=== PATIENT | male | born 1990 | race American Indian/Alaskan Native ===

== ENCOUNTER 2017-01-11 12:49 | Emergency (ER) | payer OTHER ==
[2017-01-11 13:48] VITALS: BP 121/81
--- NOTE | 2017-01-11 13:53 | Emergency Department Report ---
Entered by ASH GUALLPA, acting as scribe for SYMONE NOEL NP. Chief Complaint: Back Pain/Injury Stated Complaint: BACK PAIN Time Seen by Provider: 01/11/17 13:43 - HPI History of Present Illness: 26 y/o male presents c/o back pain that started yesterday morning. Pt denies penile discharge, dysuria, lesions or trauma to the area. Secondary complaints includes rash near his rectum. He notes being sexually active, but "calming down " with the number of partners. NAD VSS ambulatory no focal or neuro deficits concern for herpes flare - ROS Review of Systems: as noted in HPI - Exam Vital Signs: Vital Signs 01/11/17 13:42 Temperature 98.7 F Pulse Rate 81 Respiratory 16 Rate Blood Pressure 121/81 O2 Sat by Pulse 100 Oximetry Physical Exam: as noted in HPI MSE screening note: Focused history and physical exam performed. Due to findings the following was ordered: ED Disposition for MSE Condition: Stable This documentation as recorded by the scribe,ASH GUALLPA,accurately reflects the service I personally performed and the decisions made by ,SYMONE NOEL NP.
[2017-01-11 14:42] LABS: Bilirubin,Urine NEG (Negative); Blood,Urine NEG (Negative); Ketones,Urine NEG (Negative); Leukocyte Esterase,Urine NEG (Negative); Mucus,Urine FEW /HPF; Nitrite,Urine NEG (Negative); Protein,Urine <15 mg/dL mg/dL (Negative); Urobilinogen,Urine < 2.0 mg/dL (<2.0)
[2017-01-11] MEDS ORDERED: TORADOL IM ONE (16:56)
[2017-01-11] MEDS ORDERED: DELTASONE PO ONE (16:56)
--- NOTE | 2017-01-11 16:57 | Emergency Department Report ---
ED Back Pain/Injury HPI - General Chief Complaint: Pain General Stated Complaint: BACK PAIN Time Seen by Provider: 01/11/17 16:50 Source: patient Limitations: No Limitations - History of Present Illness Initial Comments: here reports that he has lower back pain 2 days that got worse last night. He denies any trauma or injury. He's had similar incident in the past but not had any x-ray. He denies any penile drainage or burning. Denies any blood in his urine. Denies any urinary burning frequency or urgency .denies any abdominal pain. Also added that he is concerned that he has herpes breakout in his rectal area which hurts. Pain to back and rectal areas 4-10. He says that there breakout has been there for 3 months and not getting any better. Denies any fever or chills. Denies constipation. MD Complaint: back pain, other (rectal pain) Onset/Timin -: days(s) (pain, back. Rectal pain for 3 months) Similar Symptoms Previously: Yes Place: home Radiation: none Severity: mild Severity scale (0 -10): 4 Quality: burning, aching Consistency: intermittent Improves With: immobilization Worsens With: movement, walking Context: unknown Associated Symptoms: denies: confusion, weakness, chest pain, numbness, difficulty walking, cough, difficulty urinating, diaphoresis, incontinence, fever/chills, constipation, headaches, abdominal pain, loss of appetite, malaise , nausea/vomiting, rash, seizure, shortness of breath, syncope Treatments Prior to Arrival: NSAIDS - Related Data Previous Rx's Medication Instructions Recorded Last Taken Type Hydrocortisone [Proctosol-Hc] 28.35 gm RC BID PRN #1 cream.appl 01/11/17 Unknown Rx traMADol [Ultram] 50 mg PO Q6HR PRN #20 tablet 01/11/17 Unknown Rx Allergies Allergy/AdvReac Type Severity Reaction Status Date / Time No Known Allergies Allergy Unverified 01/11/17 16:55 ED Review of Systems ROS: Stated complaint: BACK PAIN Other details as noted in HPI Comment: All other systems reviewed and negative Constitutional: denies: chills, fever ENT: denies: throat pain, congestion Respiratory: no symptoms reported. denies: cough, shortness of breath, SOB with exertion, SOB at rest, stridor, wheezing Cardiovascular: denies: chest pain, palpitations, edema, syncope Genitourinary: other (rectal pain). denies: urgency, dysuria, frequency, hematuria, discharge, testicular pain, testicular mass Musculoskeletal: back pain. denies: joint swelling, arthralgia, myalgia Skin: lesions (rectal area) Neurological: denies: headache, weakness, numbness, paresthesias, confusion, abnormal gait, vertigo ED Past Medical Hx - Past Medical History Previous Medical History?: Yes Additional medical history: Herpes - Surgical History Past Surgical History?: No - Family History Family history: no significant - Social History Smoking Status: Never Smoker Substance Use Type: Marijuana - Medications Home Medications: Home Medications Medication Instructions Recorded Confirmed Last Taken Type Hydrocortisone [Proctosol-Hc] 28.35 gm RC BID PRN #1 cream.appl 01/11/17 Unknown Rx traMADol [Ultram] 50 mg PO Q6HR PRN #20 tablet 01/11/17 Unknown Rx ED Physical Exam - General Limitations: No Limitations General appearance: alert, in no apparent distress - Head Head exam: Present: atraumatic, normocephalic, normal inspection - Eye Eye exam: Present: normal appearance, PERRL, EOMI. Absent: periorbital swelling , periorbital tenderness Pupils: Present: normal accommodation - ENT ENT exam: Present: normal exam, normal orophraynx, mucous membranes moist, TM's normal bilaterally, normal external ear exam - Neck Neck exam: Present: normal inspection, full ROM. Absent: tenderness, meningismus, lymphadenopathy - Respiratory Respiratory exam: Present: normal lung sounds bilaterally. Absent: respiratory distress, chest wall tenderness - Cardiovascular Cardiovascular Exam: Present: regular rate, normal rhythm, normal heart sounds - GI/Abdominal GI/Abdominal exam: Present: soft, normal bowel sounds. Absent: distended, tenderness, guarding, rebound, rigid - Rectal Rectal exam: Present: hemorrhoids (small hemorrhoid noted to left rectal area around dizziness. Tender to palpate), tenderness, other (no hepatic lesion noted). Absent: mass - exam: Present: normal inspection External exam: Present: normal external exam - Extremities Exam Extremities exam: Present: normal inspection, full ROM, normal capillary refill. Absent: tenderness, pedal edema, joint swelling, calf tenderness - Back Exam Back exam: Present: normal inspection, full ROM, tenderness, vertebral tenderness (positive L-spine tenderness). Absent: CVA tenderness (R), CVA tenderness (L), muscle spasm, paraspinal tenderness, rash noted - Expanded Back Exam Expanded Back exam: Absent: saddle anesthesia Back exam: Negative Straight Leg Raising: Left, Right - Expanded Neurological Exam Expanded Neurological exam: Absent: innattentive, memory loss-remote event, memory loss- recent event, ataxia, receptive aphasia, expressive aphasia, total aphasia, tremor, protecting the airway Patient oriented to: Present: person, place, time Speech: Present: fluid speech Cranial nerves: EOM's Intact: Normal, Gag Reflex: Normal, Nystagmus: Normal, Facial Sensation: Normal Cerebellar function: Romberg: Normal Upper motor neuron: Pronator Drift: Normal, Sensory Extinction: Normal Sensory exam: Upper Extremity Light Touch: Normal, Upper Extremity Temperature: Normal, UE 2 Point Discrimination: Normal, Lower Extremity Light Touch: Normal, Lower Extremity Temperature: Normal, LE 2 Point Discrimination: Normal Motor strength exam: RUE: 5, LUE: 5, RLE: 5, LLE: 5 DTR: bicep (R): 2+, bicep (L): 2+, tricep (R): 2+, tricep (L): 2+, knee (R): 2+ , knee (L): 2+, ankle (R): 2+, ankle (L): 2+ Best Eye Response ([place]): (4) open spontaneously Best Motor Response ([place]): (6) obeys commands Best Verbal Response ([place]): (5) oriented [place] Total: 15 - Psychiatric Psychiatric exam: Present: normal affect, normal mood - Skin Skin exam: Present: warm, dry, intact, normal color. Absent: rash ED Course Vital Signs 01/11/17 13:42 Temperature 98.7 F Pulse Rate 81 Respiratory 16 Rate Blood Pressure 121/81 O2 Sat by Pulse 100 Oximetry - Reevaluation(s) Reevaluation #1: 01/11/17 19:24 Patient given prednisone and Toradol in emergency room for lower back pain. ED Medical Decision Making - Lab Data Lab Results 01/11/17 Range/Units 13:57 Urine Color Yellow (Yellow) Urine Turbidity Clear (Clear) Urine pH 5.0 (5.0-7.0) Ur Specific [place] 1.027 (1.003-1.030) Urine Protein <15 mg/dl (Negative) mg/dL Urine Glucose (UA) Neg (Negative) mg/dL Urine Ketones Neg (Negative) mg/dL Urine Blood Neg (Negative) Urine Nitrite Neg (Negative) Urine Bilirubin Neg (Negative) Urine Urobilinogen < 2.0 (<2.0) mg/dL Ur Leukocyte Esterase Neg (Negative) Urine WBC (Auto) 1.0 (0.0-6.0) /HPF Urine RBC (Auto) 1.0 (0.0-6.0) /HPF U Epithel Cells (Auto) < 1.0 (0-13.0) /HPF Urine Mucus Few /HPF - Radiology Data Radiology results: report reviewed X-ray of the lumbar spine revealed no acute findings. Normal exam - Medical Decision Making ED course:Pt With diagnosis of external hemorrhoid, rectal pain and lower back pain. I explained to patient based on my physical findings he has a hemorrhoid unknot herpes outbreak. he was given Toradol 60 mg IM and Deltasone 60 mg by mouth in emergency room which relieved his pain. I explained to him that his x- ray of lower back was normal, No abnormalities. He reports understanding of discharge instructions and treatment plan. Patient does not have a primary care physician so I told refer him to [facility] to manage back pain and hemorrhoid. discharged home with prescription for hydrocortisone rectal cream and Ultram. Critical care attestation.: If time is entered above; I have spent that time in minutes in the direct care of this critically ill patient, excluding procedure time. ED Disposition Clinical Impression: Rectal pain, External hemorrhoids Lower back pain Qualifiers: Chronicity: acute Back pain laterality: midline Sciatica presence: without sciatica Qualified Code(s): M54.5 - Low back pain Disposition: DISCHARGED TO HOME OR SELFCARE Is pt being admited?: No Does the pt Need Aspirin: No Condition: Stable Instructions: Hemorrhoids (ED), Back Pain (ED) Additional Instructions: take sitz baths couple times a day to relieve rectal pain and hemorrhoids. Take medication as prescribed Reports outside [facility] for hemorrhoid and lower back pain. Prescriptions: Hydrocortisone [Proctosol-Hc] 28.35 gm RC BID PRN #1 cream.appl PRN Reason: Hemorrhoids traMADol [Ultram] 50 mg PO Q6HR PRN #20 tablet PRN Reason: Pain Referrals: [facility] [Outside] - 2-3 Days CLOTILDE CHRISTIANSEN MD [Staff Physician] - 2-3 Days Forms: Work/School Release Form(ED)
--- NOTE | 2017-01-11 19:00 | XRay Report ---
FINAL REPORT EXAM: XR SPINE LUMBOSACRAL 2-3V HISTORY: lumbar spine pain.TTP TECHNIQUE: AP, lateral and coned-down views of the lumbar spine PRIORS: None. FINDINGS: The vertebral body heights and disc spaces are well maintained. The alignment is normal. No evidence for spondylolysis or spondylolisthesis is seen. Pedicles are intact bilaterally at all levels. The paraspinal soft tissues are unremarkable. IMPRESSION: Normal lumbar spine.
== END 2017-01-11 19:45 | disposition home or self-care (01) ==
LOC: ED 12:49
DX: K64.4 Residual hemorrhoidal skin tags (principal); M54.5 Low back pain; K62.89 Other specified diseases of anus and rectum; F12.90 Cannabis use, unspecified, uncomplicated
CPT/HCPCS: 72100; 81001; 96372; 99284; J1885; J7512